=== PATIENT | male | born 1990 | race Caucasian/White ===

== ENCOUNTER 2016-12-24 14:40 | Emergency (ER) | payer SELFPAY ==
--- NOTE | 2016-12-24 14:48 | ER Document Report ---
ED Medical Screen (RME) - General Stated Complaint: WOUND CHECK Mode of Arrival: Ambulatory Information source: Patient Notes: c/o abscess to tailbone that started 3 days ago but it has progressively worsened. Endorses associated erythema, warmth and swelling but denies any drainage. Has tried warm compress and ibuprofen which provided minimal relief Denies fever, chills, nausea, vomiting. I have greeted and performed a rapid initial assessment of this patient. A comprehensive ED assessment and evaluation of the patient, analysis of test results and completion of the medical decision making process will be conducted by additional ED providers. - Related Data Allergies/Adverse Reactions: hydrocodone bitartrate [From Vicodin] Allergy (Verified 05/04/12 12:39) Past Medical History - Immunizations Hx Diphtheria, Pertussis, Tetanus Vaccination: Yes Physical Exam - Vital signs Vitals: Temp Pulse Resp BP Pulse Ox 98.6 F 102 H 16 151/74 H 98 12/24/16 14:43 12/24/16 14:43 12/24/16 14:43 12/24/16 14:43 12/24/16 14:43 Course - Vital Signs Vital signs: Temp Pulse Resp BP Pulse Ox 98.6 F 102 H 16 151/74 H 98 12/24/16 14:43 12/24/16 14:43 12/24/16 14:43 12/24/16 14:43 12/24/16 14:43
[2016-12-24] MEDS ORDERED: LIDOCAINE 4%/TETRACAINE 0.5%/EPI 0.18% 5 ML TOPICAL SOLN TOP ONE (15:43)
[2016-12-24] MEDS ORDERED: IBUPROFEN 800 MG TABLET PO ONE (15:43)
[2016-12-24] MEDS ORDERED: ONDANSETRON 4 MG TAB.RAPDIS PO ONE (15:44)
[2016-12-24] MEDS ORDERED: SULFAMETHOXAZOLE/TRIMETHOPRIM 800-160 MG TABLET PO ONE (15:44)
--- NOTE | 2016-12-24 15:49 | ER Document Report ---
HPI - HPI Patient complains to provider of: buttocks abscess Onset: Other Onset/Duration: Gradual - 3 days Pain Level: 5 Context: 26-year-old male with no history of MRSA or pilonidal cyst is complaining of increased painful abscess to the top of his right gluteal crest for 3 days. Associated Symptoms: None Exacerbated by: Movement Relieved by: Denies Similar symptoms previously: No Recently seen / treated by doctor: No - ROS ROS below otherwise negative: Yes Systems Reviewed and Negative: Yes All other systems reviewed and negative - DERM Skin Color: Normal Past Medical History - General Information source: Patient - Social History Smoking Status: Never Smoker Chew tobacco use (# tins/day): No Frequency of alcohol use: None Drug Abuse: None Lives with: Family Family History: Reviewed & Not Pertinent Patient has suicidal ideation: No Patient has homicidal ideation: No - Medical History Medical History: Negative Renal/ Medical History: Denies: Hx Peritoneal Dialysis Surgical Hx: Negative - Immunizations Hx Diphtheria, Pertussis, Tetanus Vaccination: Yes Vertical Provider Document - CONSTITUTIONAL Agree With Documented VS: Yes Exam Limitations: No Limitations - INFECTION CONTROL TRAVEL OUTSIDE OF THE [place] IN LAST 30 DAYS: No - HEENT HEENT: Normocephalic - NECK Neck: Supple - RESPIRATORY O2 Sat by Pulse Oximetry: 98 - BACK Back: Normal Inspection - NEURO Level of Consciousness: Awake, Alert - DERM Integumentary: Abscess - red tender indurated abscess infereior right side of gluteal crest Course - Vital Signs Vital signs: Temp Pulse Resp BP Pulse Ox 98.6 F 102 H 16 151/74 H 98 12/24/16 14:43 12/24/16 14:43 12/24/16 14:43 12/24/16 14:43 12/24/16 14:43 Procedures - Incision and Drainage Right Buttock Time completed: 17:00 Type: Simple Anesthetic type: 1% Lidocaine mL's of anesthetic: 8 Blade size: 11 I&D procedure: Sterile dressing applied, Other - surgiscrub Incision Method: Incision made by scalpel Amount/type of drainage: large pus/blood Adult Front & Back picture: 1 - abscess Discharge - Discharge Clinical Impression: incision & drainage of pilonidal abscess Condition: Good Disposition: HOME, SELF-CARE Instructions: Abscess ([facility]), Trimethoprim-Sulfa ([facility]), Post Incision and Drainage, Oral Narcotic Medication ([facility]) Additional Instructions: warm compress keep the dressing on for 2 days then wash in shwoer vigorously with soap and water daily, dry dressing See general surgeon if this recurs Please complete the patient satisfaction survey if you get one, and return it.. If you do not receive a survey, then you can go to the [facility] website, [email or web address] and place your comments about your very good care. Thank you very much. It was a pleasure being your medical provider today. Prescriptions: Oxycodone HCl/Acetaminophen [Percocet 5-325 mg Tablet] 1 - 2 tab PO ASDIR PRN # 15 tablet PRN Reason: Sulfamethoxazole/Trimethoprim [Sulfamethoxazole-Tmp Ds Tablet] 1 each PO BID # 14 tablet Forms: Return to Work Referrals: POLO MARKS MD [ACTIVE STAFF] - Follow up as needed
[2016-12-24] MEDS ORDERED: LIDOCAINE 1%/EPINEPHRINE INJ 20 ML VIAL INJ ONE (16:59)
[2016-12-24] MEDS ORDERED: LIDOCAINE 1% INJ-PF (10 MG/ML) 30 ML SDV INJ ONE (17:06)
[2016-12-24] MEDS ORDERED: LIDOCAINE 1% INJ-PF (10 MG/ML) 30 ML SDV ONE (17:07)
[2016-12-24 17:45] VITALS: BP 133/83
== END 2016-12-24 17:40 | disposition home or self-care (01) ==
LOC: ER 14:40
PROC: 0H98XZZ Drainage of Buttock Skin, External Approach (ICD-10-PCS; principal; 2016-12-24)
DX: L05.01 Pilonidal cyst with abscess (principal)
CPT/HCPCS: 10080; 99283; S0119; J3490 ×2

== ENCOUNTER 2017-08-01 13:16 | Emergency (ER) | payer SELFPAY ==
[2017-08-01 13:21] VITALS: BP 157/88
--- NOTE | 2017-08-01 14:11 | ER Document Report ---
ED Skin Rash/Insect Bite/Abscs - General Chief Complaint: Abscess Stated Complaint: POSSIBLE ABSCESS Time Seen by Provider: 08/01/17 13:40 TRAVEL OUTSIDE OF THE [place] IN LAST 30 DAYS: No - HPI Patient complains to provider of: Tender/swollen area Onset: Other - 4 days Onset/Duration: Gradual, Persistent Quality of pain: Achy, Throbbing Severity: Moderate Skin Character: Abscess Skin Temperature: Hot Quality of rash: Painful Identify cause: No Exacerbated by: Sitting, Movement Relieved by: Supine Similar symptoms previously: Yes - h/o abscess same location Recently seen / treated by doctor: No - Related Data Allergies/Adverse Reactions: hydrocodone bitartrate [From Vicodin] Allergy (Verified 08/01/17 13:19) Past Medical History - Social History Smoking Status: Unknown if Ever Smoked Family History: Reviewed & Not Pertinent Renal/ Medical History: Denies: Hx Peritoneal Dialysis - Immunizations Hx Diphtheria, Pertussis, Tetanus Vaccination: Yes Physical Exam - Vital signs Vitals: Temp Pulse Resp BP Pulse Ox 98.4 F 98 16 157/88 H 98 08/01/17 13:21 08/01/17 13:21 08/01/17 13:21 08/01/17 13:21 08/01/17 13:21 - General General appearance: Appears well, Alert In distress: None - Skin Skin Temperature: Hot Skin irregularity: Abscess - left of midlne on the coccyx, no involvement of the gluteaus or site near the rectume Irregularity with: Tenderness Course - Re-evaluation Re-evalutation: 08/01/17 15:17 patient is a 26 year old male p/w abscess. I&D performed at the [facility], initiated on PO abx and pain medications. F/u in three days for wound check. given strict return precautions. patient agrees with plan - Vital Signs Vital signs: Temp Pulse Resp BP Pulse Ox 98.4 F 98 16 157/88 H 98 08/01/17 13:21 08/01/17 13:21 08/01/17 13:21 08/01/17 13:21 08/01/17 13:21 Procedures - Incision and Drainage Buttock Type: Simple Anesthetic type: 1% Lidocaine mL's of anesthetic: 5 Blade size: 11 I&D procedure: Betadine prep applied Incision Method: Incision made with needle Amount/type of drainage: 5-10cc purulent material Discharge - Discharge Clinical Impression: Abscess Condition: Good Disposition: HOME, SELF-CARE Instructions: Abscess ([facility]), Oral Narcotic Medication ([facility]), Post Incision and Drainage, Trimethoprim-Sulfa ([facility]) Additional Instructions: Please follow up in three days for wound check Prescriptions: Oxycodone HCl/Acetaminophen [Percocet 5-325 mg Tablet] 1 tab PO ASDIR PRN #10 tab PRN Reason: Sulfamethoxazole/Trimethoprim [Bactrim Ds Tablet] 1 each PO BID #10 tablet Forms: Return to Work
[2017-08-01] MEDS ORDERED: OXYCODONE-ACETAMINOPHEN 5-325 MG TABLET PO ONE (14:13)
[2017-08-01] MEDS ORDERED: LIDOCAINE 1% INJ-PF (10 MG/ML) 30 ML SDV INJ ONE (14:13)
[2017-08-01] MEDS ORDERED: SULFAMETHOXAZOLE/TRIMETHOPRIM 800-160 MG TABLET PO ONE (14:13)
== END 2017-08-01 15:55 | disposition home or self-care (01) ==
LOC: ER 13:16
PROC: 0H98XZZ Drainage of Buttock Skin, External Approach (ICD-10-PCS; principal; 2017-08-01)
DX: L02.31 Cutaneous abscess of buttock (principal)
CPT/HCPCS: 99283; 87070; 87205; 87075; 10060; J3490